=== PATIENT | female | born 1935 | race Caucasian/White ===

== ENCOUNTER 2016-10-29 07:32 | Day surgery (SDC) | payer OTHER ==
[2016-10-29] VITALS (15 sets, daily range): BP systolic 102–167; BP diastolic 66–78; PULSE 72–83; RESP 15–26; Ht 317.5 cm; Wt 95.0 kg
[~2016-10-29] VITALS: Ht 317.5 cm; Wt 95.0 kg
[~2016-10-29 07:32] MED LIST: ACYC400T2 PO; GABA300C16 PO; LAS20 PO; LEVO500T10 PO; POLY17PO6 PO
[2016-10-29] MEDS ORDERED: CEFAZOLIN 2 GM/50 ML (PMX) 50 ML IVPB ONE (10:00)
[2016-10-29] MEDS ORDERED: SOD CHLORIDE 0.9% 1,000 ML IV SCH (10:00)
[2016-10-29] MEDS ORDERED: CAPT12.52 PO (10:35)
[2016-10-29] MEDS ORDERED: BACL10TA PO (10:35)
[2016-10-29] MEDS ORDERED: CEFAZOLIN 1 GM INJ ONE ×2 (12:36→14:33)
[2016-10-29] MEDS ORDERED: ONDANSETRON 4 MG INJ ONE (12:36)
[2016-10-29] MEDS ORDERED: PROPOFOL 20 ML ONE (12:36)
[2016-10-29] MEDS ORDERED: METOCLOPRAMIDE 10 MG INJ ONE (12:36)
[2016-10-29] MEDS ORDERED: FENTAnyl 50 MCG/ML VIAL ONE (12:46)
[2016-10-29] MEDS ORDERED: SUCCINYLCHOLINE CHLORIDE 100 MG/5 ML SYG IV ONE (12:58)
[2016-10-29] MEDS ORDERED: EPHEDrine SULFATE 50 MG/5 ML SYG ONE (13:02)
[2016-10-29] MEDS ORDERED: EPHEDrine SULFATE 50 MG/5 ML SYG IV PRN (13:30)
[2016-10-29] MEDS ORDERED: MEPERIDINE 25 MG INJ IV PRN (13:30)
[2016-10-29] MEDS ORDERED: HYDROmorphONE (0.2 MG/ML) 10ML SYG IV PRN ×3 (13:30)
[2016-10-29] MEDS ORDERED: LABETALOL HCL 20MG INJ IV PRN (13:30)
[2016-10-29] MEDS ORDERED: DIPHENHYDRAMINE 50 MG INJ IV PRN (13:30)
[2016-10-29] MEDS ORDERED: ONDANSETRON 4 MG INJ IV PRN (13:30)
[2016-10-29] MEDS ORDERED: OXYCODONE/ACETAMINOPHEN (5/325) TAB PO PRN ×2 (13:30)
[2016-10-29] MEDS ORDERED: METOCLOPRAMIDE 10 MG INJ IV PRN (13:30)
[2016-10-29] MEDS ORDERED: hydrALAzine 20 MG INJ IV PRN (13:30)
[2016-10-29] MEDS ORDERED: METOPROLOL 5 MG INJ ONE (14:26)
[2016-10-29] MEDS ORDERED: ROPIVACAINE 0.5 % 30 ML VIAL ONE (14:29)
[2016-10-29] MEDS ORDERED: LIDOCAINE 2% JELLY 5 ML ONE (14:58)
[2016-10-29] MEDS ORDERED: HYDROmorphONE 2 MG/ML SYG ONE (14:58)
--- NOTE | 2016-11-02 20:53 | RADRPT ---
Vent Rate: 61 bpm RR Interval: 0 msec NC Interval: 176 msec QRS Duration: 82 msec QT Interval: 388 msec QTC Interval: 390 msec P-R-T [place]: 53 - 63 - 62 degrees Normal sinus rhythm Normal ECG Electronically Signed By: Glynn Perez [id number]
--- NOTE | 2016-12-04 07:49 | OPR ---
DATE OF OPERATION: PREOPERATIVE DIAGNOSIS: Invasive cancer of the right breast. POSTOPERATIVE DIAGNOSIS: Invasive cancer of the right breast. OPERATIVE PROCEDURE: Right modified radical mastectomy. ANESTHESIA: General. SURGEON: Dr. Rafi Montez. MOTOR MECHANIC: Dr. Cardenas. INDICATIONS FOR PROCEDURE: Patient is an 81-year-old female, who had undergone previous surgery for a suspicious papillary lesion in the right breast. She was found on final pathology to have an invasive cancer with positive margins. The family was not interested in re-excision. They requested a right modified radical mastectomy. She consented and was scheduled for surgery. OPERATIVE PROCEDURE: The patient was brought to the operating theater, placed under general anesthesia. The right breast and axillary region was prepped and draped in usual sterile fashion. An elliptical incision was demarcated with marking pen around the nipple areolar complex and portion of the skin of the breast. It is carried out with 15 blade scalpel. Subcutaneous tissue was dissected with cautery. The skin edges were then elevated with Allis [place] clamps. Using cautery, skin flaps were sequentially developed first to the clavicle, then to the sternal border, then to the inframammary fold, and then finally laterally until the latissimus dorsi muscle was identified throughout its course. Mastectomy then took place from medial to lateral using cautery. At the border of the pectoralis major muscle, the pectoralis minor muscle was identified. Clavipectoral fascia was incised. Blunt dissection along the chest wall was utilized to identify the long thoracic nerve. More superiorly, the axillary vein and thoracodorsal neurovascular bundles were identified and kept out of harm's way. Level 1 node bearing tissue was then resected using the LigaSure device and final connective tissue attachments to the latissimus dorsi muscle were then transected also using the LigaSure device. The specimen was oriented and sent for permanent pathologic analysis. The wound was irrigated. Minimal bleeding was controlled with cautery. Two number 10 flat Tan- Willis drains were then brought through the right mid axillary line, 1 was cut to size and laid within the axilla. The other was cut to size, laid over the pectorals major muscle. Both drains were secured in place with 2-0 nylon sutures in the standard fashion. The skin was reapproximated with skin lisa. Patient tolerated the procedure well. ESTIMATED BLOOD LOSS: Was approximately 100 cc. COMPLICATIONS: There were no complications. DISPOSITION: The patient was transported in stable condition to the recovery room. Dictated By: Rafi Montez MD /valerie/milan /Document#: [id number]
== END 2016-10-29 16:20 | disposition home or self-care (01) ==
LOC: SDS 07:32
PROVIDERS: ATTEND Surgery Surgical Oncology
DX: C50.011 Malignant neoplasm of nipple and areola, right female breast (principal)
CPT/HCPCS: 19307; 88307; 93005; J0690; J1170; J2405; J2765; J2795; J3010; J7999; Z7512; Z7610

== ENCOUNTER 2016-11-19 07:57 | Inpatient (IN) | payer OTHER ==
[2016-11-19] VITALS (14 sets, daily range): BP systolic 136–162; BP diastolic 58–77; PULSE 78–96; RESP 14–21; Ht 129.5 cm; Wt 94.5 kg
[~2016-11-19] VITALS: Ht 129.5 cm; Wt 94.5 kg
[~2016-11-19 07:57] MED LIST changes: -ACYC400T2 PO; +BACL10TA PO; +CAPT12.52 PO; +CEFAZOLIN 1 GM INJ ONE; +CEFAZOLIN 2 GM/50 ML (PMX) 50 ML IVPB SCH; -GABA300C16 PO; -LAS20 PO; -LEVO500T10 PO; -POLY17PO6 PO; +SOD CHLORIDE 0.9% 1,000 ML IV SCH
[2016-11-19] MEDS ORDERED: CAPT25TA3 PO (08:39)
[2016-11-19 10:20] LABS: ADD SCAN DIFF NO
[2016-11-19] MEDS ORDERED: FENTAnyl 50 MCG/ML VIAL ONE (10:20)
[2016-11-19] MEDS ORDERED: METOCLOPRAMIDE 10 MG INJ ONE (10:20)
[2016-11-19] MEDS ORDERED: ROCURONIUM 50 MG INJ ONE (10:20)
[2016-11-19] MEDS ORDERED: PROPOFOL 20 ML ONE (10:20)
[2016-11-19] MEDS ORDERED: SUCCINYLCHOLINE CHLORIDE 100 MG/5 ML SYG IV ONE (10:20)
[2016-11-19] MEDS ORDERED: ONDANSETRON 4 MG INJ ONE (10:20)
--- NOTE | 2016-11-19 10:24 | RADRPT ---
PROCEDURE: XR Chest. CLINICAL INDICATION: Preoperative. Right mastectomy. TECHNIQUE: Single frontal chest x-ray. COMPARISON: None. FINDINGS: The lungs are clear of acute infiltrates, edema, effusions, or masses. There are low lung volumes pr esent.. Cardiomegaly with hilar vascular crowding is present. Calcific atherosclerosis of the aorta is present.. The osseous structures are intact. IMPRESSION: No acute cardiopulmonary disease. Low lung volumes with hilar vascular crowding. Cardiomegaly with calcified aorta. RPTAT: RR .Corey Elizalde MD, MD Date Time Electronically viewed and signed by .Corey Elizalde MD, MD on 11/19/2016 10:24 .L/
[2016-11-19 10:31] LABS: BASOPHIL # 0.1 10^3/ul (0.0-0.1); BASOPHILS % 0.9 % (0.0-2.0); EOSINOPHILS # 0.2 10^3/ul (0.0-0.5); EOSINOPHILS % 3.1 % (0.0-7.0); HEMATOCRIT 38.7 % (37.0-47.0); HEMOGLOBIN 12.8 g/dl (12.0-16.0); LYMPHOCYTES # 1.4 10^3/ul (0.8-2.9); MEAN CORPUSCULAR HGB CONC 33.1 g/dl (32.0-37.0); MEAN CORPUSCULAR VOLUME 99.7 fl (82.0-101.0); MEAN PLATELET VOLUME 10.8 fl (7.4-10.4); MONOCYTE # 0.5 10^3/ul (0.3-0.9); MONOCYTES % 9.4 % (0.0-11.0); NEUTROPHIL # 3.3 10^3/ul (1.6-7.5); NEUTROPHILS % 60.2 % (39.0-77.0); PLATELET COUNT 149 10^3/UL (140-415); RED BLOOD COUNT 3.88 10^6/ul (4.20-5.40); RED CELL DISTRIBUTION WIDTH 13.1 % (11.5-14.5); WHITE BLOOD COUNT 5.4 10^3/ul (4.8-10.8)
[2016-11-19 10:42] LABS: INR 0.97; PROTIME 12.9 Sec (12.2-14.2)
[2016-11-19 10:47] LABS: ALBUMIN 4.2 g/dl (3.3-4.9); ALBUMIN/GLOBULIN RATIO 1.1; BILIRUBIN,INDIRECT 0.4 mg/dl (0-1.1); BILIRUBIN,TOTAL 0.4 mg/dl (0.2-1.3)
[2016-11-19 10:48] LABS: CREATININE 0.81 mg/dl (0.44-1.00); POTASSIUM 4.9 mmol/L (3.5-5.1)
[2016-11-19] MEDS ORDERED: LABETALOL HCL 20MG INJ IV PRN (11:30)
[2016-11-19] MEDS ORDERED: MEPERIDINE 25 MG INJ IV PRN (11:30)
[2016-11-19] MEDS ORDERED: HYDROmorphONE (0.2 MG/ML) 10ML SYG IV PRN ×2 (11:30)
[2016-11-19] MEDS ORDERED: hydrALAzine 20 MG INJ IV PRN (11:30)
[2016-11-19] MEDS ORDERED: FENTAnyl 50 MCG/ML VIAL IV PRN ×2 (11:30)
[2016-11-19] MEDS ORDERED: ONDANSETRON 4 MG INJ IV PRN ×2 (11:30→12:30)
[2016-11-19] MEDS: HYDROmorphONE (0.2 MG/ML) 10ML SYG IV PRN ×3 (12:21→12:59)
[2016-11-19] MEDS ORDERED: morphine 2 MG INJ IV PRN (12:30)
[2016-11-19] MEDS ORDERED: DIPHENHYDRAMINE 50 MG INJ ONE (12:34)
[2016-11-19] MEDS ORDERED: DIPHENHYDRAMINE 50 MG INJ IV ONE (13:00)
[2016-11-19] MEDS: D5W-0.45 NACL + KCL 20 MEQ 1,000 ML IV SCH ×3 (15:52→23:33)
--- NOTE | 2016-11-19 19:37 | HP ---
Date/Time of Note Date/Time of Note DATE: 11/19/16 TIME: 19:23 Assessment/Plan VTE Prophylaxis VTE Prophylaxis Intervention: SCD's Lines/Catheters IV Catheter Type (from Nrsg): Peripheral IV Assessment/Plan Assessment/Plan - right breast cancer - SP right mastectomy - per sx - pain control - IVF - zofran - Former smoker - reinforced smoking cessation - SCD for DVT prophylaxis HPI/ROS Admit Date/Time Admit Date/Time Nov 19, 2016 at 13:24 ROS nad, family at bed side- all Qs ANSWERED.alert/ awake, afebrile. denies any complaints. dw staff. will do PRN bP med for elevated BP. Respiratory: no complaints Cardiovascular: no complaints Gastrointestinal: no complaints Genitourinary: no complaints Musculoskeletal: no complaints Skin: other (sp right breast surgery) PMH/Family/Social Past Surgical History Past Surgical Hx: appendectomy, other (HERNIA reapir x 4) Social History Alcohol Use: none Smoking Status: Former smoker Drug Use: none Exam/Review of Systems Vital Signs Vitals Vital Signs Date Time Temp Pulse Resp B/P Pulse Ox O2 Delivery O2 Flow Rate FiO2 11/19/16 14:53 97.5 100 21 148/67 97 11/19/16 12:57 Nasal Cannula 2.0 Exam Constitutional: alert, oriented, well developed Respiratory: clear to auscultation, normal air movement Cardiovascular: regular rate and rhythm Gastrointestinal: non-tender, soft Musculoskeletal: nl extremities to inspection Extremities: normal pulses Neurological: nl mental status, nl speech Skin: other (SP right mastectomy.-DDI- right CARMELA noted. ) Labs Result Diagram: 11/19/16 0945 11/19/16 0945 Medications Medications Current Medications Ondansetron HCl 4 mg 4 mg Q6H PRN IV NAUSEA AND/OR VOMITING; Start 11/19/16 at 12:30 Potassium Chloride/Dextrose/ Sod Cl (D5-1/2ns + KCl 20 Meq) 1,000 ml @ 125 mls/ hr Q8H IV Last administered on 11/19/16t 15:52; Admin Dose 125 MLS/HR; Start at 12:19 Morphine Sulfate 2 mg 2 mg Q1H PRN IV PAIN; Start 11/19/16 at 12:30 Acetaminophen (Ofirmev 1000mg/ 100ml Iv) 100 ml @ 400 mls/hr Q6H PRN IVPB PAIN ; Start 11/19/16 at 12:30 CHAMP HE Nov 19, 2016 19:33
--- NOTE | 2016-11-19 21:06 | RADRPT ---
Vent Rate: 69 bpm RR Interval: 0 msec MD Interval: 180 msec QRS Duration: 86 msec QT Interval: 388 msec QTC Interval: 415 msec P-R-T [place]: 50 - 56 - 58 degrees Normal sinus rhythm Normal ECG Electronically Signed By: Alexandre Kahn [id number]
[2016-11-20] VITALS (7 sets, daily range): BP systolic 115–140; BP diastolic 56–73; RESP 17–20
[2016-11-20] MEDS: ACETAMINOPHEN 1000MG/100ML IV 100 ML IVPB PRN ×2 (00:38→22:03)
[2016-11-20 06:21] LABS: ADD SCAN DIFF NO
[2016-11-20 07:04] LABS: CALCIUM 8.5 mg/dl (8.4-10.2); CREATININE 0.8 mg/dl (0.44-1.00); POTASSIUM 4.5 mmol/L (3.5-5.1)
[2016-11-20 07:05] LABS: BASOPHILS % 0.4 % (0.0-2.0); EOSINOPHILS # 0.3 10^3/ul (0.0-0.5); EOSINOPHILS % 3.8 % (0.0-7.0); HEMATOCRIT 31.1 % (37.0-47.0); HEMOGLOBIN 10.5 g/dl (12.0-16.0); LYMPHOCYTES # 1.5 10^3/ul (0.8-2.9); LYMPHOCYTES % 21.4 % (15.0-51.0); MEAN CORPUSCULAR HEMOGLOBIN 34.1 pg (29.0-33.0); MEAN CORPUSCULAR HGB CONC 33.8 g/dl (32.0-37.0); MONOCYTE # 0.7 10^3/ul (0.3-0.9); MONOCYTES % 10.4 % (0.0-11.0); NEUTROPHIL # 4.4 10^3/ul (1.6-7.5); NEUTROPHILS % 63.7 % (39.0-77.0); PLATELET COUNT 142 10^3/UL (140-415); RED BLOOD COUNT 3.08 10^6/ul (4.20-5.40); RED CELL DISTRIBUTION WIDTH 13.2 % (11.5-14.5); WHITE BLOOD COUNT 6.9 10^3/ul (4.8-10.8)
[2016-11-20] MEDS: D5W-0.45 NACL + KCL 20 MEQ 1,000 ML IV SCH (08:30)
--- NOTE | 2016-11-20 12:01 | PN ---
Date/Time of Note Date/Time of Note DATE: 11/20/16 TIME: 11:49 Assessment/Plan VTE Prophylaxis VTE Prophylaxis Intervention: ambulation Lines/Catheters [facility] Per[facility] IV Assessment/Plan Assessment/Plan Assessment and plan This is an 81 years old female who underwent modified radical mastectomy with axillary dissection yesterday cancer of the right breast. Overall patient is relatively stable. A small problem and that is the drainage from Tan Willis since operation yesterday afternoon still with bloody. There has been some drop in the hemoglobin. For this reason I am planning to keep the patient at least 1 night to observe for possible bleeding from the Tan-Willis drain or from the flap. Subjective 24 Hr Interval Summary Free Text/Dictation Postop day #1 No specific complaint. Has tolerated diet Apparently there has been some drainage from the incision line ,bloody, last night they reinforced the dressing. Exam/Review of Systems Vital Signs Vitals Vital Signs Date Time Temp Pulse Resp B/P Pulse Ox O2 Delivery O2 Flow Rate FiO2 11/20/16 08:05 98.5 88 18 129/73 92 11/19/16 12:57 Nasal Cannula 2.0 Intake and Output 11/19/16 11/19/16 11/20/16 15:00 23:00 07:00 Intake Total 600 ml 200 ml 2050 ml Output Total 40 ml 145 ml Balance 560 ml 200 ml 1905 ml Exam Awake alert oriented 3. Postop day #1. Status post right modified radical mastectomy with axillary dissection. Vital sign is stable. Hemoglobin is 10.5 before operation is 12.5. 2 Tan-Willis drains are in place. From the time of operation till 7 PM last night totally they have drained 145 cc of bloody fluid. Since 7 AM today. Now she is 12:00 there is total about 65 cc of bloody fluid collection in the Tan-Willis drain bags. At this time wound inspected there is no more evidence of oozing or bleeding. Patient can move right hand and right elbow and right arm easily without restriction. Results Result Diagram: 11/20/16 0538 11/20/16 0538 Results 24 hrs Laboratory Tests Test 11/20/16 05:38 White Blood Count 6.9 # Red Blood Count 3.08 #L Hemoglobin 10.5 L Hematocrit 31.1 L Mean Corpuscular Volume 101.0 Mean Corpuscular Hemoglobin 34.1 H Mean Corpuscular Hemoglobin Concent 33.8 Red Cell Distribution Width 13.2 Platelet Count 142 Mean Platelet Volume 11.0 H Neutrophils % 63.7 Lymphocytes % 21.4 Monocytes % 10.4 Eosinophils % 3.8 Basophils % 0.4 Neutrophils # 4.4 Lymphocytes # 1.5 Monocytes # 0.7 Eosinophils # 0.3 Basophils # 0.0 Nucleated Red Blood Cells # 0.0 Sodium Level 141 Potassium Level 4.5 Chloride Level 103 Carbon Dioxide Level 29 Anion Gap 14 Blood Urea Nitrogen 14 Creatinine 0.80 Glucose Level 119 Calcium Level 8.5 Medications Medications Current Medications Ondansetron HCl 4 mg 4 mg Q6H PRN IV NAUSEA AND/OR VOMITING; Start 11/19/16 at 12:30 Potassium Chloride/Dextrose/ Sod Cl (D5-1/2ns + KCl 20 Meq) 1,000 ml @ 125 mls/ hr Q8H IV Last administered on 11/20/16 08:30; Admin Dose 125 MLS/HR; Start at 12:19 Morphine Sulfate 2 mg 2 mg Q1H PRN IV PAIN; Start 11/19/16 at 12:30 Acetaminophen (Ofirmev 1000mg/ 100ml Iv) 100 ml @ 400 mls/hr Q6H PRN IVPB PAIN Last administered on 11/20/16 00:38; Admin Dose 400 MLS/HR; Start at 12:30 YOSI JACOB MD Nov 20, 2016 11:59
--- NOTE | 2016-11-20 15:18 | PN ---
Date/Time of Note Date/Time of Note DATE: 11/20/16 TIME: 15:15 Assessment/Plan VTE Prophylaxis VTE Prophylaxis Intervention: SCD's Lines/Catheters IV Catheter Type (from Nrs): Peripheral IV Assessment/Plan Chief Complaint/Hosp Course Patient remains hemodynamically stable, pain is well controlled. End of care discussed with patient patient's son at the bedside. Problems: Assessment/Plan -Right breast cancer, status post right radical mastectomy by Dr. Montez on . Patient had a slight drop in hemoglobin and large output from Delroy Willis. Continue to monitor patient. CBC tomorrow. Continue Tylenol and [place] as needed for pain and Zofran as needed for nausea. Follow-up surgical recommendations. -Hypertension, patient is currently normotensive, resume captopril on discharge. Further recommendations based on clinical course. Plan of care discussed with Dr. Cabral. Exam/Review of Systems Vital Signs Vitals Vital Signs Date Time Temp Pulse Resp B/P Pulse Ox O2 Delivery O2 Flow Rate FiO2 11/20/16 14:57 99.2 92 17 129/59 94 11/19/16 12:57 Nasal Cannula 2.0 Intake and Output 11/19/16 11/19/16 11/20/16 15:00 23:00 07:00 Intake Total 600 ml 200 ml 2050 ml Output Total 40 ml 145 ml Balance 560 ml 200 ml 1905 ml Exam Constitutional: alert Head: normocephalic Neck: supple Respiratory: normal air movement Cardiovascular: nl pulses Gastrointestinal: soft Extremities: normal pulses, other (Status post right mastectomy) Results Result Diagram: 11/20/16 0538 11/20/16 0538 Results 24 hrs Laboratory Tests Test 11/20/16 05:38 White Blood Count 6.9 # Red Blood Count 3.08 #L Hemoglobin 10.5 L Hematocrit 31.1 L Mean Corpuscular Volume 101.0 Mean Corpuscular Hemoglobin 34.1 H Mean Corpuscular Hemoglobin Concent 33.8 Red Cell Distribution Width 13.2 Platelet Count 142 Mean Platelet Volume 11.0 H Neutrophils % 63.7 Lymphocytes % 21.4 Monocytes % 10.4 Eosinophils % 3.8 Basophils % 0.4 Neutrophils # 4.4 Lymphocytes # 1.5 Monocytes # 0.7 Eosinophils # 0.3 Basophils # 0.0 Nucleated Red Blood Cells # 0.0 Sodium Level 141 Potassium Level 4.5 Chloride Level 103 Carbon Dioxide Level 29 Anion Gap 14 Blood Urea Nitrogen 14 Creatinine 0.80 Glucose Level 119 Calcium Level 8.5 Medications Medications Current Medications Ondansetron HCl (Zofran Inj) 4 mg Q6H PRN IV NAUSEA AND/OR VOMITING; Start at 12:30 Morphine Sulfate 2 mg 2 mg Q1H PRN IV PAIN; Start 11/19/16 at 12:30 Acetaminophen (Ofirmev 1000mg/ 100ml Iv) 100 ml @ 400 mls/hr Q6H PRN IVPB PAIN Last administered on 11/20/16 00:38; Admin Dose 400 MLS/HR; Start at 12:30 SHARI HUERTA Nov 20, 2016 15:18
[2016-11-20 16:30] LABS: BASOPHILS % 0.5 % (0.0-2.0); EOSINOPHILS # 0.3 10^3/ul (0.0-0.5); EOSINOPHILS % 4.7 % (0.0-7.0); HEMATOCRIT 31.1 % (37.0-47.0); HEMOGLOBIN 10.5 g/dl (12.0-16.0); LYMPHOCYTES # 1.5 10^3/ul (0.8-2.9); LYMPHOCYTES % 21.9 % (15.0-51.0); MEAN CORPUSCULAR HEMOGLOBIN 33.9 pg (29.0-33.0); MEAN CORPUSCULAR HGB CONC 33.8 g/dl (32.0-37.0); MEAN CORPUSCULAR VOLUME 100.3 fl (82.0-101.0); MEAN PLATELET VOLUME 10.4 fl (7.4-10.4); MONOCYTE # 0.8 10^3/ul (0.3-0.9); MONOCYTES % 11.3 % (0.0-11.0); NEUTROPHIL # 4.1 10^3/ul (1.6-7.5); NEUTROPHILS % 61.3 % (39.0-77.0); PLATELET COUNT 139 10^3/UL (140-415); RED CELL DISTRIBUTION WIDTH 13.2 % (11.5-14.5); WHITE BLOOD COUNT 6.6 10^3/ul (4.8-10.8)
[2016-11-21] VITALS: BP 107/55; RESP 20
[2016-11-21 04:05] VITALS: BP 120/58; RESP 20
[2016-11-21] MEDS: ACETAMINOPHEN 1000MG/100ML IV 100 ML IVPB PRN (05:53)
[2016-11-21 07:32] LABS: BASOPHILS % 0.4 % (0.0-2.0); EOSINOPHILS # 0.3 10^3/ul (0.0-0.5); EOSINOPHILS % 4.8 % (0.0-7.0); HEMATOCRIT 30.9 % (37.0-47.0); HEMOGLOBIN 10.2 g/dl (12.0-16.0); LYMPHOCYTES # 1.4 10^3/ul (0.8-2.9); LYMPHOCYTES % 23.9 % (15.0-51.0); MEAN CORPUSCULAR HEMOGLOBIN 33.2 pg (29.0-33.0); MEAN CORPUSCULAR VOLUME 100.7 fl (82.0-101.0); MEAN PLATELET VOLUME 11.3 fl (7.4-10.4); MONOCYTE # 0.6 10^3/ul (0.3-0.9); MONOCYTES % 10.4 % (0.0-11.0); NEUTROPHIL # 3.4 10^3/ul (1.6-7.5); NEUTROPHILS % 60.1 % (39.0-77.0); PLATELET COUNT 127 10^3/UL (140-415); RED BLOOD COUNT 3.07 10^6/ul (4.20-5.40); RED CELL DISTRIBUTION WIDTH 13.2 % (11.5-14.5); WHITE BLOOD COUNT 5.7 10^3/ul (4.8-10.8)
[2016-11-21 07:42] LABS: CALCIUM 8.5 mg/dl (8.4-10.2); CREATININE 0.75 mg/dl (0.44-1.00)
[2016-11-21 08:00] VITALS: BP 123/66; RESP 21
--- NOTE | 2016-11-21 13:43 | PN ---
Date/Time of Note Date/Time of Note DATE: 11/21/16 TIME: 13:36 Assessment/Plan VTE Prophylaxis VTE Prophylaxis Intervention: ambulation Lines/Catheters IV [facility] [place] Assessment/Plan Assessment/Plan Status post right modified radical mastectomy with axillary dissection today is postop day #2 The Tan-Willis drainage patient was bloody yesterday today serosanguineous. Hemoglobin hematocrit stayed stable. Plan: Surgical point of view patient can be discharged home Tan-Willis drains in place the nurses have taught the patient's family how to take care of the Tan-Willis drains. Patient's daughter due to emptied immediately night and record the drainage amount. The family to call Dr. Lehman office on Wednesday and make an appointment for follow-up. Subjective 24 Hr Interval Summary Free Text/Dictation November 21, 2016 postop day #2 operation modified right radical mastectomy. Patient does not have any complain she states that she does not have pain at all Exam/Review of Systems Vital Signs Vitals Vital Signs Date Time Temp Pulse Resp B/P Pulse Ox O2 Delivery O2 Flow Rate FiO2 11/21/16 08:00 98.7 98 21 123/66 95 11/19/16 12:57 Nasal Cannula 2.0 Intake and Output 11/20/16 11/20/16 11/21/16 15:00 23:00 07:00 Intake Total 550 ml 600 ml 820 ml Output Total 75 ml 55 ml Balance 550 ml 525 ml 765 ml Exam Awake alert oriented 3. Vital signs are stable hemoglobin hematocrit is stable. Tan-Willis drainage has changed color to serosanguineous. No more oozing or bleeding from the incision line. Results Result Diagram: 11/21/16 0602 11/21/16 0602 Results 24 hrs Laboratory Tests Test 11/20/16 16:10 11/21/16 06:02 White Blood Count 6.6 5.7 Red Blood Count 3.10 L 3.07 L Hemoglobin 10.5 L 10.2 L Hematocrit 31.1 L 30.9 L Mean Corpuscular Volume 100.3 100.7 Mean Corpuscular Hemoglobin 33.9 H 33.2 H Mean Corpuscular Hemoglobin Concent 33.8 33.0 Red Cell Distribution Width 13.2 13.2 Platelet Count 139 L 127 L Mean Platelet Volume 10.4 11.3 H Neutrophils % 61.3 60.1 Lymphocytes % 21.9 23.9 Monocytes % 11.3 H 10.4 Eosinophils % 4.7 4.8 Basophils % 0.5 0.4 Nucleated Red Blood Cells % 0.0 0.0 Neutrophils # 4.1 3.4 Lymphocytes # 1.5 1.4 Monocytes # 0.8 0.6 Eosinophils # 0.3 0.3 Basophils # 0.0 0.0 Nucleated Red Blood Cells # 0.0 0.0 Sodium Level 142 Potassium Level 4.0 Chloride Level 100 Carbon Dioxide Level 29 Anion Gap 17 H Blood Urea Nitrogen 12 Creatinine 0.75 Glucose Level 91 Calcium Level 8.5 Medications Medications Current Medications Ondansetron HCl (Zofran Inj) 4 mg Q6H PRN IV NAUSEA AND/OR VOMITING; Start at 12:30 Morphine Sulfate 2 mg 2 mg Q1H PRN IV PAIN; Start 11/19/16 at 12:30 Acetaminophen (Ofirmev 1000mg/ 100ml Iv) 100 ml @ 400 mls/hr Q6H PRN IVPB PAIN Last administered on 11/21/16t 05:53; Admin Dose 400 MLS/HR; Start at 12:30 YOSI JACOB MD Nov 21, 2016 13:42
[2016-11-21 14:00] VITALS: BP 132/63; RESP 19
--- NOTE | 2016-11-21 16:26 | OPR ---
DATE OF OPERATION: 11/19/2016 SURGEON: Rafi Montez MD. AWNING CRAFTSPERSON: Donald Cardenas MD. ANESTHESIOLOGIST: Tristen Romeo MD. PREOPERATIVE DIAGNOSIS: Invasive cancer, right breast. POSTOPERATIVE DIAGNOSIS: Invasive cancer, right breast. OPERATION PERFORMED: Right modified radical mastectomy. ANESTHESIA: General. INDICATIONS FOR PROCEDURE: Patient is an 81-year-old female, who underwent a needle-directed excisional biopsy and it was found to have an invasive papillary cancer with inadequate margins. She was offered re-excision and sentinel node biopsy. However, the family did not want to the patient received radiation. She elected undergo right modified radical mastectomy. She consented and was scheduled for surgery. OPERATIVE PROCEDURE: Patient was brought to the operating theater and placed under general endotracheal tube anesthesia. The right breast and axillary region was prepped and draped in usual sterile fashion. Planned elliptical incision encompassing the nipple-areolar complex and significant amount of the redundant skin overlying the breast was demarcated with marking pen. The incision was then carried out with 15 blade scalpel. Subcutaneous tissue was then dissected with cautery. Allis Jered clamps were used to elevate the skin edges, and with using cautery sequentials skin flaps were developed, first superiorly to the clavicle, and then medially to the sternal border, inferiorly to the inframammary fold and laterally to latissimus dorsi muscle was identified throughout its course. Mastectomy then took place from medial to lateral using cautery. At the border of the pectoralis major muscle, the pectoralis minor muscle was identified. Clavipectoral fascia was incised with blunt dissection along the chest wall. The long thoracic nerve was identified and kept out of harm's way. A limited lymph node dissection was then performed taking significant number of level 1 lymph nodes. They were dissected with the LigaSure device. At this point, final connective tissue attachments to the latissimus dorsi muscle were transected with cautery. Specimen was oriented and sent for permanent pathologic analysis. The wound was irrigated. Minimal bleeding was controlled with cautery. Subsequently 2 #10 flat Tan-Willis drains were then brought through the right mid axillary line. One was cut to size and laid within the axilla. The other was laid over the pectoralis major muscle. Both drains were secured in place with #2-0 nylon sutures in the standard fashion. The skin was then reapproximated with skin lisa. The patient tolerated the procedure well. Estimated blood loss was 40 mL. There were no complications. The patient was transported stable condition to recovery room, where a circumferential compression dressing was applied. Dictated By: Rafi Montez MD /valerie/damien /Document#: [id number]
--- NOTE | 2016-11-21 16:30 | PDOCDIS ---
Discharge Instructions CONDITION Patient Condition: Stable HOME CARE INSTRUCTIONS: Diet Instructions: ACTIVITY: Bathing Restrictions: Sponge Bath FOLLOW UP/APPOINTMENTS Follow-up Plan FU with Primary MD X 1 WEEK FU with surgery as recommended. Call 911 or got to the nearest hospital if symptoms get worse. Plan of car jose cruz Cabral/staff/patient CHAMP HE Nov 21, 2016 16:30
[2016-11-21] MEDS ORDERED: DOCU-144 PO (16:38)
[2016-11-21] MEDS ORDERED: HYDR-906 PO (16:38)
--- NOTE | 2016-11-21 16:50 | DS ---
Date/Time of Note Date/Time of Note DATE: 11/21/16 TIME: 16:50 Discharge Summary Admission/Discharge Info Admit Date/Time Nov 21, 2016 at 16:33 Discharge Date/Time Hospital Course Patient remains hemodynamically stable, pain is well controlled. End of care discussed with patient patient's son at the bedside. Home Meds Active Scripts Docusate Sodium* (Colace*) 100 Mg Capsule, 100 MG PO [place], #30 CAP Prov:CHAMP HE 11/21/16 Hydrocodone/Acetaminophen ([place] 5-325 Tablet) 1 Each Tablet, 1 EACH PO Q6 Y for PAIN LEVEL 6-10, #20 TAB Prov:CHAMP HE 11/21/16 Reported Medications Captopril* (Captopril*) 25 Mg Tablet, 25 MG PO DAILY, #60 TAB 11/19/16 Discontinued Reported Medications Captopril* (Captopril*) 12.5 Mg Tablet, 6.25 MG PO DAILY Y for ELEVATED BLOOD PRESSURE, #60 TAB 10/29/16 Baclofen* (Baclofen*) 10 Mg Tablet, 10 MG PO QHS Y for MUSCLE SPASMS, TAB 10/29/16 Primary Care Provider Not On Staff Doctor Pending Labs Laboratory Tests Test 11/21/16 06:02 White Blood Count 5.710^3/ul (4.8-10.8) Red Blood Count 3.0710^6/ul (4.20-5.40) Hemoglobin 10.2g/dl (12.0-16.0) Hematocrit 30.9% (37.0-47.0) Mean Corpuscular Volume 100.7fl (82.0-101.0) Mean Corpuscular Hemoglobin 33.2pg (29.0-33.0) Mean Corpuscular Hemoglobin Concent 33.0g/dl (32.0-37.0) Red Cell Distribution Width 13.2% (11.5-14.5) Platelet Count 52555^3/UL (140-415) Mean Platelet Volume 11.3fl (7.4-10.4) Neutrophils % 60.1% (39.0-77.0) Lymphocytes % 23.9% (15.0-51.0) Monocytes % 10.4% (0.0-11.0) Eosinophils % 4.8% (0.0-7.0) Basophils % 0.4% (0.0-2.0) Nucleated Red Blood Cells % 0.0/100WBC (0.0-0.0) Neutrophils # 3.410^3/ul (1.6-7.5) Lymphocytes # 1.410^3/ul (0.8-2.9) Monocytes # 0.610^3/ul (0.3-0.9) Eosinophils # 0.310^3/ul (0.0-0.5) Basophils # 0.010^3/ul (0.0-0.1) Nucleated Red Blood Cells # 0.010^3/ul (0.0-0.0) Sodium Level 142mmol/L (135-144) Potassium Level 4.0mmol/L (3.5-5.1) Chloride Level 100mmol/L (97-110) Carbon Dioxide Level 29mmol/L (21-31) Anion Gap 17 (8-16) Blood Urea Nitrogen 12mg/dl (7-20) Creatinine 0.75mg/dl (0.44-1.00) Glucose Level 91mg/dl (70-220) Calcium Level 8.5mg/dl (8.4-10.2) CHAMP HE Nov 21, 2016 16:50
== END 2016-11-21 18:34 | disposition home or self-care (01) | DRG 582 ==
LOC: SDS 07:57 → PP2 13:24 → OBSVTOIN 11-21 16:33
PROVIDERS: ADMIT Surgery Surgical Oncology; ATTEND Surgery Surgical Oncology
PROC: 0HTT0ZZ Resection of Right Breast, Open Approach (ICD-10-PCS; principal; 2016-11-19 10:30)
DX: C50.911 Malignant neoplasm of unspecified site of right female breast (principal); Z68.43 Body mass index [BMI] 50.0-59.9, adult; I10 Essential (primary) hypertension; E66.01 Morbid (severe) obesity due to excess calories
CPT/HCPCS: 71010; 80048; 80053; 85025; 85610; 85730; 88307; 93005; G0378; J0131; J0690; J1170; J1200; J2405; J2765; J3010; J3480; J7030; J7999